=== PATIENT | female | born 1960 ===

== ENCOUNTER 2018-06-14 15:12 | Emergency (ER) | payer MEDICAID, OTHER ==
[2018-06-14 15:20] VITALS: RESP 18; TEMP 97.7
--- NOTE | 2018-06-14 16:43 | ED PDOC ---
HPI: Trauma/Fall - HPI Time Seen by Provider: 06/14/18 15:26 Chief Complaint (Nursing): Trauma Chief Complaint (Provider): Trauma History Per: Patient History/Exam Limitations: no limitations Onset/Duration Of Symptoms: Days Additional Complaint(s): 58 y/o female with a PMHx of Cervical Spinal Fusion, HTN and Hypothyroidism presents to the ED for evaluation of left knee pain s/p fall while at work earlier today. Patient states she was walking down the street, tripped and fell forward landing onto the left knee. Patient reports she broke her fall with both hands. Patient notes of experiencing some neck pain since breaking her fall. Patient reports she has not taken any medications for pain relief. Patient states she is able to bear weight on left knee. At this time, patient is expressing concern over the neck pain and feels that she may need further evaluation given history of neck surgeries. Otherwise, patient denies numbness and tingling in the left foot, head trauma and loss of consciousness. PMD: none provided Past Medical History Reviewed: Historical Data, Nursing Documentation, Vital Signs Vital Signs: Last Vital Signs Temp 97.7 F 06/14/18 15:17 Pulse 84 06/14/18 15:17 Resp 18 06/14/18 15:17 BP 130/90 06/14/18 15:17 Pulse Ox 100 06/14/18 15:17 - Medical History PMH: HTN, Hypothyroidism Other PMH: Cervical Spinal Fusion - Family History Family History: States: Unknown Family Hx - Home Medications Home Medications: Ambulatory Orders Medication Instructions Recorded Ibuprofen [Motrin Tab] 600 mg PO Q6 PRN 7 Days tab 06/14/18 - Allergies Allergies/Adverse Reactions: Allergies Allergy/AdvReac Type Severity Reaction Status Date / Time Sulfa (Sulfonamide Allergy ANAPHYLAXIS Verified 06/14/18 15:17 Antibiotics) Review of Systems ROS Statement: Except As Marked, All Systems Reviewed And Found Negative Musculoskeletal: Positive for: Neck Pain, Leg Pain Physical Exam - Reviewed Nursing Documentation Reviewed: Yes Vital Signs Reviewed: Yes - Physical Exam Appears: Positive for: No Acute Distress Neck: Positive for: Painless ROM (Full ROM with flexion and extension as well as lateral rotation of the neck. ). Negative for: Normal (Mild tenderness to palpation at the base of the skull. No cervical tenderness) Pulses-Dorsalis Pedis (L): 2+ Pulses-Dorsalis Pedis (R): 2+ Extremity: Positive for: Normal ROM (Normal ROM with flexion and extension of the left knee, ankle and hip. ), Tenderness (tenderness to palpation medial to the patella), Capillary Refill (> 2 seconds), Swelling (Mid ecchymosis and swelling noted medial to the patella.) Neurologic/Psych: Positive for: Alert, Oriented - ECG O2 Sat by Pulse Oximetry: 100 (RA) Pulse Ox Interpretation: Normal Medical Decision Making Medical Decision Making: Time: 1616 Impression: Back Pain Plan: -- Knee 3 Views XR -- Motrin 600 mg PO -- Patient advised she will require a CT of her Cervical Spine for the best evaluation of the neck. [employer] her mechanism of injury, symptoms and physical exam findings, CT does not seem to be indicated. Patient is in agreement to not have study done and will take Ibuprofen to see if pain improves. Time: 1815 -- XR as read by me demonstrates no acute findings -- On re-evaluation, patient reports an improvement of symptoms. Patient is stable upon discharge angela. Scribe Attestation: Documented by Ciro Hollis, acting as a scribe David Gomez PA-C. Provider Scribe Attestation: All medical record entries made by the Scribe were at my direction and personal ly dictated by me. I have reviewed the chart and agree that the record accurately reflects my personal performance of the history, physical exam, medical decision making, and the department course for this patient. I have also personally directed, reviewed, and agree with the discharge instructions and disposition. Disposition - Clinical Impression Clinical Impression: Knee pain, left - Patient ED Disposition Is Patient to be Admitted: No Counseled Patient/Family Regarding: Studies Performed, Diagnosis, Rx Given - Disposition Disposition: Routine/Home Disposition Time: 18:16 Condition: STABLE Additional Instructions: Take Ibuprofen for pain. Use SONAM bandage as needed for comfort. Follow up with your primary care doctor for recurrent pain. Prescriptions: Ibuprofen [Motrin Tab] 600 mg PO Q6 PRN 7 Days tab PRN Reason: Pain, Moderate (4-7) Instructions: Knee Pain (DC) Forms: [facility] (Jamaican), [facility] ED School/Work Excuse Print Language: GERMAN
--- NOTE | 2018-06-14 18:02 | RAD ---
Date of service: 06/14/2018 PROCEDURE: Left Knee Radiographs. HISTORY: Posttraumatic pain. COMPARISON: None. FINDINGS: BONES: Normal. No fracture. JOINTS: Normal. No osteoarthritis. JOINT EFFUSION: None. OTHER FINDINGS: None. IMPRESSION: No acute findings related to/ accounting for the clinical presentation.
[2018-06-14 18:27] VITALS: BP 150/90; PULSE 78; O2SAT 98
== END 2018-06-14 18:27 | disposition home or self-care (01) ==
LOC: H.ER 15:12
DX: M25.562 Pain in left knee (principal); W01.0XXA Fall on same level from slipping, tripping and stumbling without subsequent striking against object, initial encounter; Y99.0 Civilian activity done for income or pay; E03.9 Hypothyroidism, unspecified; I10 Essential (primary) hypertension; Z88.2 Allergy status to sulfonamides; Z98.1 Arthrodesis status